=== PATIENT | male | born 1955 | race Caucasian/White ===

== ENCOUNTER 2019-01-17 09:02 | Emergency (ER) | payer BC ==
[2019-01-17 09:30] VITALS: BP 134/81
--- NOTE | 2019-01-17 09:42 | ED ---
Skin Complaint - HPI Summary HPI Summary: This patient is a 63-year-old male who presents to the urgent care with a chief complaint of having an insect bite a couple days ago and now he has become red, swelling and tenderness in the posterior aspect of the right thigh. Patient denies any calf tenderness, denies any fevers or chills. Patient has no other complaints. - History of Current Complaint Chief Complaint: UCSkin Time Seen by Provider: 01/17/19 09:11 Stated Complaint: INSECT BITE Hx Obtained From: Patient Onset/Duration: Started Days Ago Timing: Constant Onset Severity: Mild Current Severity: None Pain Intensity: 0 - Allergy/Home Medications Allergies/Adverse Reactions: Allergies Allergy/AdvReac Type Severity Reaction Status Date / Time amoxicillin Allergy Intermediate Hives Verified 01/17/19 09:33 cephalexin [From Keflex] Allergy Intermediate Hives Verified 01/17/19 09:31 clavulanic acid Allergy Intermediate Hives Verified 01/17/19 09:33 [From Augmentin] erythromycin base Allergy Intermediate Hives Verified 01/17/19 09:33 Home Medications: Home Medications Finasteride 5 mg PO DAILY WITH MEAL 01/17/19 [History Confirmed 01/17/19] PMH/Surg Hx/FS Hx/Imm Hx Previously Healthy: Yes Endocrine/Hematology History: Denies: Hx Diabetes, Hx Thyroid Disease Cardiovascular History: Denies: Hx Hypertension Respiratory History: Denies: Hx Asthma, Hx Chronic Obstructive Pulmonary Disease (COPD) GI History: Denies: Hx Ulcer Infectious Disease History: No Infectious Disease History: Denies: Hx Hepatitis, Hx Human Immunodeficiency Virus (HIV), Traveled Outside the [place] in Last 30 Days - Family History Known Family History: Positive: Non-Contributory - Social History Alcohol Use: Occasionally Substance Use Type: Reports: None Smoking Status (MU): Never Smoked Tobacco Review of Systems Constitutional: Negative Eyes: Negative ENT: Negative Cardiovascular: Negative Respiratory: Negative Gastrointestinal: Negative Genitourinary: Negative Musculoskeletal: Negative Positive: Rash Neurological: Negative Psychological: Normal All Other Systems Reviewed And Are Negative: Yes Physical Exam - Summary Physical Exam Summary: VITAL SIGNS: Reviewed. GENERAL: Patient is a well developed and nourished male who is lying comfortably in the stretcher. Patient is not in any acute respiratory distress. HEAD AND FACE: No signs of trauma. No ecchymosis, hematomas or skull depressions. No sinus tenderness. EYES: PERRLA, EOMI x 2, No injected conjunctiva, no nystagmus. EARS: Hearing grossly intact. Ear canals and tympanic membranes are within normal limits. MOUTH: Oropharynx within normal limits. NECK: Supple, trachea is midline, no adenopathy, no JVD, no carotid bruit, no c- spine tenderness, neck with full ROM. CHEST: Symmetric, no tenderness at palpation LUNGS: Clear to auscultation bilaterally. No wheezing or crackles. CVS: Regular rate and rhythm, S1 and S2 present, no murmurs or gallops appreciated. ABDOMEN: Soft, non-tender. No signs of distention. No rebound no guarding, and no masses palpated. Bowel sounds are normal. EXTREMITIES: FROM in all major joints, positive erythema, swelling and tenderness in the posterior aspect of the right side with an area 4 x 4 centimeters. There is no abscess formation. NEURO: Alert and oriented x 3. No acute neurological deficits. Speech is normal and follows commands. SKIN: Dry and warm Triage Information Reviewed: Yes Vital Signs On Initial Exam: Initial Vitals Temp Pulse Resp BP Pulse Ox 98.1 F 69 18 134/81 98 01/17/19 09:27 01/17/19 09:27 01/17/19 09:27 01/17/19 09:27 01/17/19 09:27 Vital Signs Reviewed: Yes Diagnostics - Vital Signs Vital Signs Temp Pulse Resp BP Pulse Ox 01/17/19 09:27 98.1 F 69 18 134/81 98 - Laboratory Lab Statement: Any lab studies that have been ordered have been reviewed, and results considered in the medical decision making process. Course/Dx - Course Assessment/Plan: In the urgent care the patient is hemodynamically stable. He seems that the patient had an insect bite and now he has developed cellulitis. Therefore, the patient was started on Bactrim. Patient will be discharged home with follow-up with primary care physician in the next 2-3 days. He was given instructions to return to the emergency department if he develops any other symptoms or the Current symptoms worsen. Patient understands and agrees. - Diagnoses Provider Diagnoses: Cellulitis, Insect bite Discharge - Sign-Out/Discharge Documenting (check all that apply): Patient Departure All imaging exams completed and their final reports reviewed: No Studies - Discharge Plan Condition: Stable Disposition: HOME Prescriptions: Sulfamethox/Trimethoprim DS* [Bactrim DS 800/160 TAB*] 1 tab PO BID #14 tab Patient Education Materials: Cellulitis (DC), Insect Bite or Sting (ED) Referrals: An Pepper MD [Primary Care Provider] - Additional Instructions: Take medications as instructed Increase your fluid intake F/U with PCP in the next 2-3 days Return to the UC if symptoms worsen - Billing Disposition and Condition Condition: STABLE Disposition: Home
== END 2019-01-17 09:49 | disposition home or self-care (01) ==
LOC: UCEAST 09:02
DX: S70.361A Insect bite (nonvenomous), right thigh, initial encounter (principal); W57.XXXA Bitten or stung by nonvenomous insect and other nonvenomous arthropods, initial encounter; Y92.9 Unspecified place or not applicable; L03.115 Cellulitis of right lower limb
CPT/HCPCS: 99212; G0463

== ENCOUNTER 2023-11-11 06:46 | Observation (INO) ==
[~2023-11-11 06:46] MED LIST: Naloxone 0.4 mg VIAL 0.4 mg/ml 1 ml VIAL IV PRN; Ondansetron 4 mg VIAL 2 MG/ML 2 ml VIAL IV PRN; fentaNYL 100 mcg/2 ml 50 MCG/ML VIAL IV PRN
[2023-11-11 07:22] LABS: Rapid COVID-19 Molecular Undetected (Undetected)
[2023-11-11] MEDS: Buffered Lidocaine 1% SYRIN 1 ml INTRADERM ONE (07:32)
[2023-11-11] MEDS ORDERED: Midazolam 2 mg/2 ml VIAL 1 mg/ml 2 ml VIAL (2 mg) ONE (08:31)
[2023-11-11] MEDS ORDERED: fentaNYL 100 mcg/2 ml 50 MCG/ML VIAL ONE (08:31)
[2023-11-11] MEDS ORDERED: Rocuronium 50 mg VIAL 10 mg/ml 5 ml VIAL (50 mg) ONE (08:32)
[2023-11-11] MEDS ORDERED: oxyCODONE/Acetamin 5/325 mg TAB PO PRN (12:09)
[2023-11-11] MEDS: Gentamicin ADULT 160 MG in NS 0.9% 100 ml BAG 100 ML IVPB ONE (12:13)
[2023-11-11] MEDS: Lactated Ringers 1000 ml BAG 1,000 ML IV SCH (12:14)
[2023-11-11] MEDS: NS 0.9% 1,000 ML IV SCH (12:30)
[2023-11-11] MEDS: Lidocaine 2% JELLY 6 ML Topical TOPICAL PRN (12:36)
[2023-11-12] MEDS: Gentamicin ADULT 160 MG in NS 0.9% 100 ml BAG 100 ML IVPB ONE (09:08)
[2023-11-12 10:22] VITALS: BP 102/62
== END 2023-11-12 10:45 | disposition home or self-care (01) ==
LOC: SSU 06:46 → OR 06:46
PROVIDERS: ADMIT Urology; ATTEND Urology